=== PATIENT | male | born 1930 | race African-American/Black ===

== ENCOUNTER 2018-10-06 09:41 | Inpatient (IN) ==
[2018-10-06 10:18] LABS: Basophils % 0.2 % (0.0-0.8); Eosinophils % 0.1 % (0.00-10.9); Hematocrit 32.4 VOL% (42.0-52.0); Hemoglobin 9.9 GM/DL (14.0-18.0); Immature Granulocytes % 0.5 %; Immature Granulocytes Absolute 0.09 #; Lymphocytes # 0.5 10*3/uL (1.4-4.0); Mean Corpuscular HGB Conc 30.6 GM/DL (32-36); Mean Corpuscular Volume 91.5 FL (87-102); Mean Platelet Volume 10.9 FL (9.6-12.0); Monocytes % 4.9 % (1.7-12.7); Neutrophils % 91.3 % (38.7-73.9); Platelet Count 204 T/CUMM (130-400); Red Blood Count 3.54 MC/CUMM (3.8-5.5); Red Cell Distribution Width 13.6 % (9.3-17.3); White Blood Count 17.4 T/CUMM (4-12)
[2018-10-06] MEDS ORDERED: SODIUM CHLORIDE 0.9% 1,000 ML IV STA ×2 (10:22→10:55)
[2018-10-06 10:27] LABS: Albumin 3.3 G/DL (3.4-5.0); Bilirubin,Total 0.5 MG/DL (0.2-1.0); Osmolality,Calculated 293.5 MOS/KG (273-304); Total Protein 6.4 G/DL (6.4-8.3)
[2018-10-06 10:29] LABS: PT Patient Result 11.2 SECS; Partial Thromboplastin Time 24.2 SECS (0-40)
[2018-10-06 10:30] LABS: Calcium 8.8 MG/DL (8.5-10.1)
[2018-10-06] MEDS ORDERED: CALCIUM CHLORIDE 1,000 MG/10 ML SYRINGE IV STA (10:30)
[2018-10-06] MEDS ORDERED: DEXTROSE 50% 25 GM/50 ML VIAL IV STA (10:30)
[2018-10-06] MEDS ORDERED: ALBUTEROL NEB SOLN 5 MG/ML 20 ML/BOTTLE CONT NEB STA (10:30)
[2018-10-06 10:31] LABS: Apearance,Urine CLEAR (Clear); Bacteria,Urine Occasional /HPF (Few); Bilirubin,Urine Negative (Negative); Blood, Urine Small mg/dL (Negative); Glucose,Urine (UA) Negative (Negative); Ketones,Urine Negative (Negative); Mucus,Urine Occasional /LPF (Occasional); Nitrite,Urine Negative (Negative); Protein,Urine Negative; RBC,Urine <1 /HPF (0-4); Squamous Epithelial Cell,Urine Occasional /HPF (0-10); Urine Color Yellow (Yellow); Urine Specific Gravity 1.008 (1.001-1.035); Urine Urobilinogen < 2.0 EU/DL (0.2-1.0)
[2018-10-06] MEDS ORDERED: INSULIN REGULAR 100 UNIT/ML IV STA (10:31)
[2018-10-06] MEDS ORDERED: DEXTROSE 50% 25 GM/50 ML SYRINGE IV ONE (10:34)
[2018-10-06 10:43] LABS: CKMB % 2.1 %
[2018-10-06 10:45] LABS: Band Neutrophils 1 % (0-10); Lymphocytes 2 % (20-55); Segmented Neutrophils 92 % (50-85); Total Cells Counted 100
[2018-10-06 10:46] LABS: Microcytosis Slight; Platelet Estimate Normal
[2018-10-06] MEDS ORDERED: SODIUM CHLORIDE 0.9% 100 ML IV ONE (10:46)
[2018-10-06 10:48] LABS: Troponin I 2.09 NG/ML (0.00-0.045)
[2018-10-06 11:00] LABS: Barbiturates Screen,Urine Negative (Negative); Benzodiazepines Screen,Urine Negative (Negative); Cannabinoid Screen,Urine Negative (Negative); Opiate Screen,Urine Negative (Negative); Phencyclidine Screen,Urine Negative (Negative)
[2018-10-06] MEDS ORDERED: SODIUM BICARB INJ 50 MEQ in DEXTROSE 5% 1,000 ML IV SCH (11:00)
[2018-10-06] MEDS ORDERED: AMPICILLIN/SULBACTAM 3,000 MG in SODIUM CHLORIDE 0.9% 100 ML IV STA (11:48)
[2018-10-06] MEDS ORDERED: ALBUTEROL 2.5 MG/3 ML NEB RESP TX PRN (12:24)
[2018-10-06] MEDS ORDERED: PROMETHAZINE 25 MG/1 ML VIAL IM PRN (12:24)
[2018-10-06] MEDS ORDERED: ONDANSETRON 4 MG/2 ML VIAL IV PRN (12:24)
[2018-10-06] MEDS ORDERED: PIPERACILLIN/TAZOBACTAM 3,375 MG in SODIUM CHLORIDE 0.9% 100 ML IV SCH (12:30)
[2018-10-06] MEDS ORDERED: LEVOFLOXACIN INJ 500 MG in PREMIX 1 EACH IV ONE (12:30)
[2018-10-06] MEDS ORDERED: SODIUM POLYSTYRENE SULFATE 15 GM/60 ML BOTTLE PO STA ×2 (12:31→13:31)
[2018-10-06] MEDS: ALBUTEROL/IPRATROPIUM 3 ML NEB RESP TX SCH ×2 (13:00→19:34)
[2018-10-06 13:01] LABS: Thyroid Stimulating Hormone 0.068 uIU/ml (0.358-3.74)
[2018-10-06] MEDS ORDERED: methylPREDNISolone SOD SUC 125 MG/2 ML VIAL IV STA (13:14)
[2018-10-06 13:20] LABS: Allen Test Positive
[2018-10-06] MEDS ORDERED: ASPIRIN EC 325 MG TABLET PO SCH (13:20)
[2018-10-06] MEDS ORDERED: MORPHINE 4 MG/1 ML VIAL IV PRN (13:20)
[2018-10-06 13:21] LABS: ABG Base Excess -14.6 MMOL/L (-2.5-2.5); ABG HCO3 13.2 MMOL/L (20-26); ABG Oxygen Saturation 99.2 % (95-100); ABG PCO2 37.6 MM HG (35-48); ABG TCO2 12.7 MMOL/L (23-27)
[2018-10-06 13:23] LABS: ABG PH 7.159 (7.35-7.45)
[2018-10-06] MEDS ORDERED: SODIUM BICARBONATE 50 MEQ/50 ML SYRINGE IV ONE (13:26)
[2018-10-06] MEDS ORDERED: SODIUM BICARBONATE 50 MEQ/50 ML VIAL IV STA (13:29)
[2018-10-06] MEDS: ENOXAPARIN 80 MG/0.8 ML SYRINGE SUBCUT SCH (13:42)
[2018-10-06] MEDS: FAMOTIDINE 20 MG/2 ML VIAL IV SCH (13:44)
[2018-10-06 13:54] LABS: Free T4 (Free Thyroxine) 0.85 NG/DL (0.76-1.46)
[2018-10-06 14:14] LABS: Calcium 8.9 MG/DL (8.5-10.1); Osmolality,Calculated 303.8 MOS/KG (273-304)
[2018-10-06 14:30] LABS: CKMB % 2.3 %
[2018-10-06 14:44] LABS: Troponin I 3.49 NG/ML (0.00-0.045)
[2018-10-06] MEDS ORDERED: METOPROLOL TARTRATE 5 MG/5 ML VIAL IV ONE ×2 (15:07→15:15)
[2018-10-06] MEDS: SODIUM BICARB INJ 150 MEQ in STERILE WATER INJ 850 ML IV SCH ×2 (15:15→23:26)
[2018-10-06] MEDS: CLINDAMYCIN INJ 900 MG in PREMIX 1 EACH IV SCH ×2 (15:28→21:27)
[2018-10-06 16:12] LABS: Calcium 8.8 MG/DL (8.5-10.1)
[2018-10-06 19:30] LABS: CKMB % 2.5 %
[2018-10-06 19:34] LABS: Troponin I 8.04 NG/ML (0.00-0.045)
[2018-10-06] MEDS: DORNASE ALFA 2.5 MG/2.5 ML VIAL RESP TX SCH (19:34)
[2018-10-06] MEDS: ATORVASTATIN 40 MG TABLET PO SCH (20:30)
[2018-10-06] MEDS: CARVEDILOL 3.125 MG TABLET PO SCH (20:30)
[2018-10-06] MEDS: methylPREDNISolone SOD SUC 125 MG/2 ML VIAL IV SCH (21:28)
[2018-10-07] MEDS: ALBUTEROL/IPRATROPIUM 3 ML NEB RESP TX SCH ×4 (00:14→19:18)
[2018-10-07 03:46] LABS: Hematocrit 27.6 VOL% (42.0-52.0); Hemoglobin 8.9 GM/DL (14.0-18.0); Immature Granulocytes % 0.5 %; Immature Granulocytes Absolute 0.06 #; Lymphocytes # 0.4 10*3/uL (1.4-4.0); Lymphocytes % 3.6 % (21.2-54.2); Mean Corpuscular HGB Conc 32.2 GM/DL (32-36); Mean Corpuscular Volume 86.8 FL (87-102); Monocytes % 2.8 % (1.7-12.7); Neutrophils % 93.1 % (38.7-73.9); Platelet Count 196 T/CUMM (130-400); Red Blood Count 3.18 MC/CUMM (3.8-5.5); Red Cell Distribution Width 13.3 % (9.3-17.3); White Blood Count 11.2 T/CUMM (4-12)
[2018-10-07 04:06] LABS: Albumin 2.8 G/DL (3.4-5.0); Bilirubin,Total 0.4 MG/DL (0.2-1.0); Calcium 8.1 MG/DL (8.5-10.1); Risk Ratio 2.42; Total Protein 5.1 G/DL (6.4-8.3); VLDL CHOLESTEROL 26.6 MG/DL
[2018-10-07 04:10] LABS: CKMB % 2.5 %
[2018-10-07 04:12] LABS: Lymphocytes 6 % (20-55); Polychromasia Few; Segmented Neutrophils 93 % (50-85); Total Cells Counted 100
[2018-10-07 04:13] LABS: Platelet Estimate Adequate; Troponin I 19.9 NG/ML (0.00-0.045)
[2018-10-07] MEDS: CLINDAMYCIN INJ 900 MG in PREMIX 1 EACH IV SCH ×3 (05:49→20:32)
[2018-10-07] MEDS: DORNASE ALFA 2.5 MG/2.5 ML VIAL RESP TX SCH ×2 (07:54→19:26)
[2018-10-07] MEDS: ASPIRIN EC 81 MG TABLET PO SCH (08:20)
[2018-10-07] MEDS: methylPREDNISolone SOD SUC 125 MG/2 ML VIAL IV SCH ×3 (08:21→23:34)
[2018-10-07] MEDS: CARVEDILOL 3.125 MG TABLET PO SCH ×2 (08:21→20:32)
[2018-10-07] MEDS: CLOPIDOGREL 75 MG TABLET PO SCH (08:21)
[2018-10-07] MEDS ORDERED: LIOTHYRONINE 25 MCG TABLET PO SCH (09:00)
[2018-10-07] MEDS ORDERED: DILTIAZEM CD 240 MG CAPSULE PO SCH (09:00)
[2018-10-07] MEDS ORDERED: LEVOTHYROXINE 50 MCG TABLET PO SCH (09:00)
[2018-10-07] MEDS: SODIUM BICARB INJ 150 MEQ in STERILE WATER INJ 850 ML IV SCH (09:30)
[2018-10-07] MEDS: LACTATED RINGERS 1,000 ML IV SCH ×2 (11:13→22:30)
[2018-10-07] MEDS: FAMOTIDINE 20 MG/2 ML VIAL IV SCH (13:11)
[2018-10-07] MEDS: ENOXAPARIN 80 MG/0.8 ML SYRINGE SUBCUT SCH (13:16)
[2018-10-07] MEDS: ATORVASTATIN 40 MG TABLET PO SCH (20:32)
[2018-10-08] MEDS: ALBUTEROL/IPRATROPIUM 3 ML NEB RESP TX SCH ×4 (00:19→19:44)
[2018-10-08 03:38] LABS: ABG Base Excess 6.7 MMOL/L (-2.5-2.5); ABG HCO3 30.5 MMOL/L (20-26); ABG Oxygen Saturation 95.4 % (95-100); ABG PCO2 41.1 MM HG (35-48); ABG PH 7.482 (7.35-7.45); ABG PO2 76.3 MM HG (80-95); ABG TCO2 28.3 MMOL/L (23-27); Allen Test Positive
[2018-10-08 04:56] LABS: Basophils % 0.1 % (0.0-0.8); Hematocrit 26.1 VOL% (42.0-52.0); Hemoglobin 8.6 GM/DL (14.0-18.0); Immature Granulocytes % 1.1 %; Immature Granulocytes Absolute 0.12 #; Lymphocytes # 0.3 10*3/uL (1.4-4.0); Lymphocytes % 2.4 % (21.2-54.2); Mean Corpuscular Volume 85.9 FL (87-102); Monocytes % 2.6 % (1.7-12.7); NRBC # 0.09 10*3/uL; Neutrophils % 93.8 % (38.7-73.9); Platelet Count 138 T/CUMM (130-400); Red Blood Count 3.04 MC/CUMM (3.8-5.5); Red Cell Distribution Width 13.5 % (9.3-17.3); White Blood Count 11.2 T/CUMM (4-12)
[2018-10-08] MEDS: CLINDAMYCIN INJ 900 MG in PREMIX 1 EACH IV SCH ×3 (05:00→23:41)
[2018-10-08 05:19] LABS: Albumin 2.7 G/DL (3.4-5.0); Bilirubin,Total 0.5 MG/DL (0.2-1.0); Calcium 7.9 MG/DL (8.5-10.1); Osmolality,Calculated 296.4 MOS/KG (273-304); Total Protein 5.3 G/DL (6.4-8.3)
[2018-10-08 05:29] LABS: Band Neutrophils 3 % (0-10); Lymphocytes 2 % (20-55); Platelet Estimate Decreased; Segmented Neutrophils 92 % (50-85); Total Cells Counted 100
[2018-10-08 05:30] LABS: Hypochromasia 2+
[2018-10-08] MEDS: DORNASE ALFA 2.5 MG/2.5 ML VIAL RESP TX SCH ×2 (07:12→19:44)
[2018-10-08] MEDS: LACTATED RINGERS 1,000 ML IV SCH ×2 (08:18→20:08)
[2018-10-08] MEDS ORDERED: LORazepam 2 MG/1 ML VIAL IV PRN (08:26)
[2018-10-08] MEDS: methylPREDNISolone SOD SUC 125 MG/2 ML VIAL IV SCH ×3 (08:42→23:41)
[2018-10-08] MEDS: ASPIRIN EC 81 MG TABLET PO SCH (09:40)
[2018-10-08] MEDS: CLOPIDOGREL 75 MG TABLET PO SCH (09:40)
[2018-10-08] MEDS: CARVEDILOL 6.25 MG TABLET PO SCH ×2 (09:40→21:29)
[2018-10-08] MEDS: FAMOTIDINE 20 MG/2 ML VIAL IV SCH (12:17)
[2018-10-08] MEDS: ENOXAPARIN 30 MG/0.3 ML SYRINGE SUBCUT SCH (12:18)
[2018-10-08] MEDS: LEVOFLOXACIN INJ 250 MG in PREMIX 1 EACH IV SCH (13:37)
[2018-10-08] MEDS: ATORVASTATIN 40 MG TABLET PO SCH (21:29)
[2018-10-09] MEDS: ALBUTEROL/IPRATROPIUM 3 ML NEB RESP TX SCH ×4 (00:30→20:26)
[2018-10-09] MEDS: CLINDAMYCIN INJ 900 MG in PREMIX 1 EACH IV SCH ×3 (04:35→20:46)
[2018-10-09] MEDS: LACTATED RINGERS 1,000 ML IV SCH (07:00)
[2018-10-09] MEDS: CLOPIDOGREL 75 MG TABLET PO SCH (08:24)
[2018-10-09] MEDS: methylPREDNISolone SOD SUC 125 MG/2 ML VIAL IV SCH ×3 (08:24→23:31)
[2018-10-09] MEDS: ASPIRIN EC 81 MG TABLET PO SCH (08:24)
[2018-10-09] MEDS: CARVEDILOL 6.25 MG TABLET PO SCH ×2 (08:24→18:01)
[2018-10-09] MEDS: DORNASE ALFA 2.5 MG/2.5 ML VIAL RESP TX SCH ×2 (08:32→20:26)
[2018-10-09] MEDS ORDERED: FUROSEMIDE 40 MG/4 ML VIAL IV ONE (09:10)
[2018-10-09] MEDS ORDERED: methylPREDNISolone SOD SUC 125 MG/2 ML VIAL IV ONE (09:30)
[2018-10-09 09:45] LABS: ABG Base Excess 2.5 MMOL/L (-2.5-2.5); ABG HCO3 26.6 MMOL/L (20-26); ABG Oxygen Saturation 97.6 % (95-100); ABG PCO2 50.8 MM HG (35-48); ABG PH 7.359 (7.35-7.45); ABG TCO2 26.4 MMOL/L (23-27)
[2018-10-09 09:46] LABS: Basophils % 0.2 % (0.0-0.8); Hematocrit 27.3 VOL% (42.0-52.0); Hemoglobin 8.6 GM/DL (14.0-18.0); Immature Granulocytes % 1.4 %; Immature Granulocytes Absolute 0.15 #; Lymphocytes # 0.8 10*3/uL (1.4-4.0); Lymphocytes % 7.2 % (21.2-54.2); Mean Corpuscular HGB Conc 31.5 GM/DL (32-36); Mean Corpuscular Volume 89.5 FL (87-102); Mean Platelet Volume 11.1 FL (9.6-12.0); Monocytes % 3.1 % (1.7-12.7); NRBC # 0.11 10*3/uL; Neutrophils % 88.1 % (38.7-73.9); Platelet Count 145 T/CUMM (130-400); Red Blood Count 3.05 MC/CUMM (3.8-5.5); Red Cell Distribution Width 13.7 % (9.3-17.3)
[2018-10-09 09:59] LABS: Alanine Aminotransferase 54 U/L (16-61); Albumin 2.5 G/DL (3.4-5.0); Alkaline Phosphatase 60 U/L (45-117); Aspartate Amino Transferase 59 U/L (0-37); Blood Urea Nitrogen 62 MG/DL (7-18); CKMB % 0.6 %; Calcium 8.3 MG/DL (8.5-10.1); Glucose 171 MG/DL (74-106); Osmolality,Calculated 298.5 MOS/KG (273-304); Total Protein 5.3 G/DL (6.4-8.3)
[2018-10-09] MEDS: FAMOTIDINE 20 MG/2 ML VIAL IV SCH (12:01)
[2018-10-09] MEDS: ENOXAPARIN 30 MG/0.3 ML SYRINGE SUBCUT SCH (12:04)
[2018-10-09] MEDS: ATORVASTATIN 40 MG TABLET PO SCH (20:46)
[2018-10-10] MEDS: ALBUTEROL/IPRATROPIUM 3 ML NEB RESP TX SCH ×4 (00:38→19:11)
[2018-10-10 04:37] LABS: Basophils % 0.1 % (0.0-0.8); Hematocrit 25.8 VOL% (42.0-52.0); Hemoglobin 8.5 GM/DL (14.0-18.0); Immature Granulocytes % 1.1 %; Immature Granulocytes Absolute 0.13 #; Lymphocytes # 0.5 10*3/uL (1.4-4.0); Lymphocytes % 4.4 % (21.2-54.2); Mean Corpuscular HGB Conc 32.9 GM/DL (32-36); Mean Corpuscular Volume 86.9 FL (87-102); Mean Platelet Volume 11.4 FL (9.6-12.0); Monocytes % 3.7 % (1.7-12.7); NRBC # 0.08 10*3/uL; Neutrophils % 90.7 % (38.7-73.9); Platelet Count 125 T/CUMM (130-400); Red Blood Count 2.97 MC/CUMM (3.8-5.5); Red Cell Distribution Width 13.6 % (9.3-17.3); White Blood Count 11.4 T/CUMM (4-12)
[2018-10-10] MEDS: CLINDAMYCIN INJ 900 MG in PREMIX 1 EACH IV SCH ×3 (04:59→21:32)
[2018-10-10 05:00] LABS: Calcium 8.6 MG/DL (8.5-10.1); Osmolality,Calculated 302.4 MOS/KG (273-304)
[2018-10-10 05:31] LABS: Band Neutrophils 2 % (0-10); Hypochromasia 2+; Lymphocytes 4 % (20-55); Platelet Estimate Decreased; Segmented Neutrophils 92 % (50-85); Total Cells Counted 100
[2018-10-10] MEDS: methylPREDNISolone SOD SUC 125 MG/2 ML VIAL IV SCH (08:39)
[2018-10-10] MEDS: DORNASE ALFA 2.5 MG/2.5 ML VIAL RESP TX SCH (08:39)
[2018-10-10] MEDS: CLOPIDOGREL 75 MG TABLET PO SCH (08:45)
[2018-10-10] MEDS: ASPIRIN EC 81 MG TABLET PO SCH (08:45)
[2018-10-10] MEDS: CARVEDILOL 6.25 MG TABLET PO SCH ×2 (08:45→18:21)
[2018-10-10] MEDS ORDERED: methylPREDNISolone SOD SUC 40 MG/1 ML VIAL ONE (08:57)
[2018-10-10] MEDS ORDERED: FUROSEMIDE 40 MG/4 ML VIAL IV SCH (09:00)
[2018-10-10] MEDS ORDERED: methylPREDNISolone SOD SUC 125 MG/2 ML VIAL IV SCH (09:00)
[2018-10-10] MEDS: methylPREDNISolone SOD SUC 40 MG/1 ML VIAL IV SCH ×2 (09:02→18:39)
[2018-10-10] MEDS: ARFORMOTEROL 15 MCG/2 ML NEB RESP TX SCH ×2 (09:13→19:06)
[2018-10-10] MEDS: ENOXAPARIN 30 MG/0.3 ML SYRINGE SUBCUT SCH (12:55)
[2018-10-10] MEDS: FAMOTIDINE 20 MG/2 ML VIAL IV SCH (12:56)
[2018-10-10] MEDS: LEVOFLOXACIN INJ 250 MG in PREMIX 1 EACH IV SCH (12:59)
[2018-10-10] MEDS: ACETYLCYSTEINE 20% 800 MG/4 ML VIAL RESP TX SCH ×2 (13:00→19:16)
[2018-10-10] MEDS: ATORVASTATIN 40 MG TABLET PO SCH (21:32)
[2018-10-11] MEDS: ALBUTEROL/IPRATROPIUM 3 ML NEB RESP TX SCH ×4 (01:30→20:03)
[2018-10-11] MEDS: ACETYLCYSTEINE 20% 800 MG/4 ML VIAL RESP TX SCH ×4 (01:30→20:03)
[2018-10-11] MEDS: methylPREDNISolone SOD SUC 40 MG/1 ML VIAL IV SCH ×3 (01:36→18:10)
[2018-10-11] MEDS: CLINDAMYCIN INJ 900 MG in PREMIX 1 EACH IV SCH ×3 (06:13→20:39)
[2018-10-11] MEDS: ARFORMOTEROL 15 MCG/2 ML NEB RESP TX SCH ×2 (06:40→20:03)
[2018-10-11] MEDS ORDERED: FUROSEMIDE 40 MG/4 ML VIAL IV SCH (09:00)
[2018-10-11] MEDS: CLOPIDOGREL 75 MG TABLET PO SCH (09:15)
[2018-10-11] MEDS: CARVEDILOL 6.25 MG TABLET PO SCH ×2 (09:15→18:11)
[2018-10-11] MEDS: ASPIRIN EC 81 MG TABLET PO SCH (09:15)
[2018-10-11 09:43] LABS: Calcium 8.8 MG/DL (8.5-10.1); Osmolality,Calculated 300.7 MOS/KG (273-304)
[2018-10-11] MEDS: FAMOTIDINE 20 MG/2 ML VIAL IV SCH (12:39)
[2018-10-11] MEDS: hydrALAZINE 10 MG TABLET PO SCH ×2 (15:05→20:39)
[2018-10-11] MEDS: ISOSORBIDE DINITRATE 10 MG TABLET PO SCH ×2 (15:05→20:39)
[2018-10-11] MEDS: ENOXAPARIN 30 MG/0.3 ML SYRINGE SUBCUT SCH (15:05)
[2018-10-11] MEDS: ATORVASTATIN 40 MG TABLET PO SCH (20:39)
[2018-10-12] MEDS: methylPREDNISolone SOD SUC 40 MG/1 ML VIAL IV SCH ×2 (01:04→13:10)
[2018-10-12] MEDS: ACETYLCYSTEINE 20% 800 MG/4 ML VIAL RESP TX SCH ×3 (01:34→15:02)
[2018-10-12] MEDS: ALBUTEROL/IPRATROPIUM 3 ML NEB RESP TX SCH ×4 (01:34→19:23)
[2018-10-12] MEDS: CLINDAMYCIN INJ 900 MG in PREMIX 1 EACH IV SCH ×2 (05:00→13:09)
[2018-10-12] MEDS: LEVOTHYROXINE 25 MCG TABLET PO SCH (05:41)
[2018-10-12 05:50] LABS: Basophils % 0.1 % (0.0-0.8); Hematocrit 26.7 VOL% (42.0-52.0); Hemoglobin 8.6 GM/DL (14.0-18.0); Immature Granulocytes % 1.9 %; Immature Granulocytes Absolute 0.28 #; Lymphocytes # 0.5 10*3/uL (1.4-4.0); Lymphocytes % 3.1 % (21.2-54.2); Mean Corpuscular HGB Conc 32.2 GM/DL (32-36); Mean Corpuscular Volume 88.7 FL (87-102); Mean Platelet Volume 12.4 FL (9.6-12.0); Monocytes % 2.8 % (1.7-12.7); NRBC # 0.02 10*3/uL; Neutrophils % 92.1 % (38.7-73.9); Platelet Count 134 T/CUMM (130-400); Red Blood Count 3.01 MC/CUMM (3.8-5.5); Red Cell Distribution Width 13.8 % (9.3-17.3); White Blood Count 14.6 T/CUMM (4-12)
[2018-10-12 06:05] LABS: Calcium 8.6 MG/DL (8.5-10.1); Osmolality,Calculated 301.7 MOS/KG (273-304)
[2018-10-12 06:56] LABS: Lymphocytes 3 % (20-55); Myelocytes 1 %; Segmented Neutrophils 94 % (50-85); Total Cells Counted 100
[2018-10-12 07:01] LABS: Acanthocytes 2+; Anisocytosis Slight; Hypochromasia Slight; Microcytosis 2+; Polychromasia Few
[2018-10-12 07:02] LABS: Platelet Estimate Normal; Target Cells Few
[2018-10-12] MEDS: ARFORMOTEROL 15 MCG/2 ML NEB RESP TX SCH ×2 (07:25→19:23)
[2018-10-12] MEDS ORDERED: SODIUM POLYSTYRENE SULFATE 15 GM/60 ML BOTTLE PO STA (08:13)
[2018-10-12] MEDS ORDERED: HALOPERIDOL 5 MG/ML AMP IV ONE (08:36)
[2018-10-12] MEDS: CARVEDILOL 6.25 MG TABLET PO SCH ×2 (10:17→16:33)
[2018-10-12] MEDS: ASPIRIN EC 81 MG TABLET PO SCH (10:17)
[2018-10-12] MEDS: PANTOPRAZOLE 40 MG TABLET PO SCH (10:17)
[2018-10-12] MEDS: CLOPIDOGREL 75 MG TABLET PO SCH (10:17)
[2018-10-12] MEDS: hydrALAZINE 10 MG TABLET PO SCH (10:27)
[2018-10-12] MEDS: ISOSORBIDE DINITRATE 10 MG TABLET PO SCH (10:28)
[2018-10-12] MEDS: ENOXAPARIN 30 MG/0.3 ML SYRINGE SUBCUT SCH (13:09)
[2018-10-12] MEDS: hydrALAZINE 25 MG TABLET PO SCH ×2 (14:52→20:40)
[2018-10-12] MEDS: ISOSORBIDE DINITRATE 20 MG TABLET PO SCH ×2 (14:52→20:40)
[2018-10-12] MEDS: AMOXICILLIN/CLAV 500 MG TABLET PO SCH (16:33)
[2018-10-12] MEDS: ATORVASTATIN 40 MG TABLET PO SCH (20:40)
[2018-10-12] MEDS: MIRTAZAPINE 15 MG TABLET PO SCH (20:40)
[2018-10-13] MEDS: ACETYLCYSTEINE 20% 800 MG/4 ML VIAL RESP TX SCH ×3 (00:34→14:29)
[2018-10-13] MEDS: ALBUTEROL/IPRATROPIUM 3 ML NEB RESP TX SCH ×4 (00:34→20:40)
[2018-10-13] MEDS: methylPREDNISolone SOD SUC 40 MG/1 ML VIAL IV SCH ×2 (01:33→12:57)
[2018-10-13] MEDS: AMOXICILLIN/CLAV 500 MG TABLET PO SCH ×2 (03:23→15:09)
[2018-10-13] MEDS: ARFORMOTEROL 15 MCG/2 ML NEB RESP TX SCH ×2 (07:44→20:40)
[2018-10-13] MEDS: hydrALAZINE 25 MG TABLET PO SCH ×3 (10:24→21:03)
[2018-10-13] MEDS: ASPIRIN EC 81 MG TABLET PO SCH (10:24)
[2018-10-13] MEDS: ISOSORBIDE DINITRATE 20 MG TABLET PO SCH ×3 (10:24→21:03)
[2018-10-13] MEDS: CARVEDILOL 6.25 MG TABLET PO SCH ×2 (10:24→16:03)
[2018-10-13] MEDS: PANTOPRAZOLE 40 MG TABLET PO SCH (10:25)
[2018-10-13] MEDS: CLOPIDOGREL 75 MG TABLET PO SCH (10:25)
[2018-10-13] MEDS: ENOXAPARIN 30 MG/0.3 ML SYRINGE SUBCUT SCH (12:57)
[2018-10-13] MEDS: MIRTAZAPINE 15 MG TABLET PO SCH (21:03)
[2018-10-13] MEDS: ATORVASTATIN 40 MG TABLET PO SCH (21:03)
[2018-10-13] MEDS: DONEPEZIL 5 MG TABLET PO SCH (21:03)
[2018-10-14] MEDS: ALBUTEROL/IPRATROPIUM 3 ML NEB RESP TX SCH ×4 (00:47→19:25)
[2018-10-14] MEDS: ACETYLCYSTEINE 20% 800 MG/4 ML VIAL RESP TX SCH ×2 (00:47→07:22)
[2018-10-14] MEDS: methylPREDNISolone SOD SUC 40 MG/1 ML VIAL IV SCH (01:51)
[2018-10-14] MEDS: AMOXICILLIN/CLAV 500 MG TABLET PO SCH ×2 (03:12→15:32)
[2018-10-14] MEDS: ARFORMOTEROL 15 MCG/2 ML NEB RESP TX SCH ×2 (07:22→19:25)
[2018-10-14] MEDS: CARVEDILOL 6.25 MG TABLET PO SCH ×2 (10:12→18:16)
[2018-10-14] MEDS: ISOSORBIDE DINITRATE 20 MG TABLET PO SCH ×3 (10:13→20:29)
[2018-10-14] MEDS: CLOPIDOGREL 75 MG TABLET PO SCH (10:13)
[2018-10-14] MEDS: PANTOPRAZOLE 40 MG TABLET PO SCH (10:13)
[2018-10-14] MEDS: hydrALAZINE 25 MG TABLET PO SCH ×3 (10:13→20:29)
[2018-10-14] MEDS: ASPIRIN EC 81 MG TABLET PO SCH (10:13)
[2018-10-14 11:17] LABS: Basophils % 0.2 % (0.0-0.8); Hematocrit 28.8 VOL% (42.0-52.0); Immature Granulocytes % 2.1 %; Immature Granulocytes Absolute 0.43 #; Lymphocytes # 0.5 10*3/uL (1.4-4.0); Lymphocytes % 2.3 % (21.2-54.2); Mean Corpuscular HGB Conc 31.3 GM/DL (32-36); Mean Corpuscular Volume 92.6 FL (87-102); Mean Platelet Volume 11.9 FL (9.6-12.0); Monocytes % 2.1 % (1.7-12.7); Neutrophils % 93.3 % (38.7-73.9); Platelet Count 186 T/CUMM (130-400); Red Blood Count 3.11 MC/CUMM (3.8-5.5); Red Cell Distribution Width 15.2 % (9.3-17.3); White Blood Count 20.3 T/CUMM (4-12)
[2018-10-14 11:34] LABS: Calcium 8.3 MG/DL (8.5-10.1)
[2018-10-14 11:46] LABS: Anisocytosis 1+; Lymphocytes 5 % (20-55); Platelet Estimate Normal; Segmented Neutrophils 94 % (50-85); Smudge Cells Few; Total Cells Counted 100
[2018-10-14 11:47] LABS: Macrocytosis 1+
[2018-10-14] MEDS: ENOXAPARIN 30 MG/0.3 ML SYRINGE SUBCUT SCH (15:33)
[2018-10-14] MEDS ORDERED: SODIUM POLYSTYRENE SULFATE 15 GM/60 ML BOTTLE PO STA (16:29)
[2018-10-14] MEDS: DONEPEZIL 5 MG TABLET PO SCH (20:29)
[2018-10-14] MEDS: MIRTAZAPINE 15 MG TABLET PO SCH (20:29)
[2018-10-14] MEDS: ATORVASTATIN 40 MG TABLET PO SCH (20:29)
[2018-10-15] MEDS: ALBUTEROL/IPRATROPIUM 3 ML NEB RESP TX SCH ×4 (01:40→19:31)
[2018-10-15] MEDS: AMOXICILLIN/CLAV 500 MG TABLET PO SCH ×2 (02:25→20:26)
[2018-10-15] MEDS: LEVOTHYROXINE 25 MCG TABLET PO SCH (06:34)
[2018-10-15] MEDS: ARFORMOTEROL 15 MCG/2 ML NEB RESP TX SCH ×2 (07:41→19:31)
[2018-10-15] MEDS: CARVEDILOL 6.25 MG TABLET PO SCH ×2 (08:39→16:14)
[2018-10-15] MEDS: CLOPIDOGREL 75 MG TABLET PO SCH (08:39)
[2018-10-15] MEDS: predniSONE 20 MG TABLET PO SCH (08:39)
[2018-10-15] MEDS: hydrALAZINE 25 MG TABLET PO SCH ×3 (08:39→20:27)
[2018-10-15] MEDS: ASPIRIN EC 81 MG TABLET PO SCH (08:39)
[2018-10-15] MEDS: PANTOPRAZOLE 40 MG TABLET PO SCH (08:40)
[2018-10-15] MEDS: ISOSORBIDE DINITRATE 20 MG TABLET PO SCH ×3 (08:40→20:27)
[2018-10-15] MEDS ORDERED: predniSONE 20 MG TABLET PO SCH (09:00)
[2018-10-15] MEDS ORDERED: methylPREDNISolone SOD SUC 40 MG/1 ML VIAL IV SCH (09:00)
[2018-10-15 09:25] LABS: Calcium 8.1 MG/DL (8.5-10.1); Osmolality,Calculated 304.3 MOS/KG (273-304)
[2018-10-15] MEDS: LEVOFLOXACIN INJ 500 MG in PREMIX 1 EACH IV SCH (11:50)
[2018-10-15] MEDS: ENOXAPARIN 30 MG/0.3 ML SYRINGE SUBCUT SCH (13:09)
[2018-10-15] MEDS: MIRTAZAPINE 15 MG TABLET PO SCH (20:26)
[2018-10-15] MEDS: ATORVASTATIN 40 MG TABLET PO SCH (20:27)
[2018-10-16] MEDS: ALBUTEROL/IPRATROPIUM 3 ML NEB RESP TX SCH ×4 (00:26→19:44)
[2018-10-16] MEDS: LEVOTHYROXINE 25 MCG TABLET PO SCH (05:29)
[2018-10-16] MEDS: ARFORMOTEROL 15 MCG/2 ML NEB RESP TX SCH ×2 (07:12→19:44)
[2018-10-16] MEDS ORDERED: predniSONE 20 MG TABLET PO SCH (09:15)
[2018-10-16] MEDS: ASPIRIN EC 81 MG TABLET PO SCH (09:23)
[2018-10-16] MEDS: CLOPIDOGREL 75 MG TABLET PO SCH (09:23)
[2018-10-16] MEDS: AMOXICILLIN/CLAV 500 MG TABLET PO SCH (09:23)
[2018-10-16] MEDS: CARVEDILOL 6.25 MG TABLET PO SCH ×2 (09:24→16:24)
[2018-10-16] MEDS: hydrALAZINE 25 MG TABLET PO SCH ×3 (09:24→21:34)
[2018-10-16] MEDS: ISOSORBIDE DINITRATE 20 MG TABLET PO SCH ×3 (09:24→21:34)
[2018-10-16] MEDS: PANTOPRAZOLE 40 MG TABLET PO SCH (09:24)
[2018-10-16 09:44] LABS: Basophils % 0.1 % (0.0-0.8); Eosinophils % 0.2 % (0.00-10.9); Hematocrit 28.4 VOL% (42.0-52.0); Hemoglobin 8.8 GM/DL (14.0-18.0); Immature Granulocytes % 1.4 %; Lymphocytes % 4.5 % (21.2-54.2); Mean Corpuscular Volume 92.5 FL (87-102); Mean Platelet Volume 12.1 FL (9.6-12.0); Monocytes % 4.4 % (1.7-12.7); Neutrophils % 89.4 % (38.7-73.9); Platelet Count 186 T/CUMM (130-400); Red Blood Count 3.07 MC/CUMM (3.8-5.5); Red Cell Distribution Width 15.9 % (9.3-17.3); White Blood Count 21.1 T/CUMM (4-12)
[2018-10-16 10:17] LABS: Hypochromasia 1+; Lymphocytes 8 % (20-55); Macrocytosis Slight; Platelet Estimate Adequate; Segmented Neutrophils 89 % (50-85); Total Cells Counted 100
[2018-10-16] MEDS: predniSONE 20 MG TABLET PO SCH (10:21)
[2018-10-16] MEDS: ENOXAPARIN 30 MG/0.3 ML SYRINGE SUBCUT SCH (15:41)
[2018-10-16] MEDS: CEFEPIME 1,000 MG in SODIUM CHLORIDE 0.9% 100 ML IV SCH (16:24)
[2018-10-16 17:21] LABS: Apearance,Urine CLEAR (Clear); Bilirubin,Urine Negative (Negative); Blood, Urine Negative (Negative); Glucose,Urine (UA) Negative (Negative); Ketones,Urine Negative (Negative); Nitrite,Urine Negative (Negative); Protein,Urine Negative; RBC,Urine 1 /HPF (0-4); Squamous Epithelial Cell,Urine Occasional /HPF (0-10); Urine Color Yellow (Yellow); Urine Specific Gravity 1.011 (1.001-1.035); Urine Urobilinogen < 2.0 EU/DL (0.2-1.0); WBC,Urine 4 /HPF (0-6)
[2018-10-16] MEDS: MIRTAZAPINE 15 MG TABLET PO SCH (21:34)
[2018-10-16] MEDS: ATORVASTATIN 40 MG TABLET PO SCH (21:34)
[2018-10-17] MEDS: ALBUTEROL/IPRATROPIUM 3 ML NEB RESP TX SCH ×4 (01:43→18:59)
[2018-10-17] MEDS: CEFEPIME 1,000 MG in SODIUM CHLORIDE 0.9% 100 ML IV SCH ×2 (04:31→16:35)
[2018-10-17] MEDS: ARFORMOTEROL 15 MCG/2 ML NEB RESP TX SCH ×2 (07:42→18:59)
[2018-10-17] MEDS: LEVOFLOXACIN INJ 500 MG in PREMIX 1 EACH IV SCH (08:59)
[2018-10-17] MEDS: ISOSORBIDE DINITRATE 20 MG TABLET PO SCH ×3 (09:00→20:22)
[2018-10-17] MEDS: ASPIRIN EC 81 MG TABLET PO SCH (09:00)
[2018-10-17] MEDS: CLOPIDOGREL 75 MG TABLET PO SCH (09:00)
[2018-10-17] MEDS: CARVEDILOL 6.25 MG TABLET PO SCH ×2 (09:00→16:36)
[2018-10-17] MEDS: hydrALAZINE 25 MG TABLET PO SCH ×3 (09:00→20:22)
[2018-10-17] MEDS: LEVOTHYROXINE 25 MCG TABLET PO SCH (09:00)
[2018-10-17] MEDS: PANTOPRAZOLE 40 MG TABLET PO SCH (09:00)
[2018-10-17] MEDS ORDERED: TUBERCULIN SKIN TEST 0.1 ML SYRINGE INTRADERM ONE (14:56)
[2018-10-17] MEDS: ENOXAPARIN 30 MG/0.3 ML SYRINGE SUBCUT SCH (16:36)
[2018-10-17] MEDS: ATORVASTATIN 40 MG TABLET PO SCH (20:22)
[2018-10-17] MEDS: MIRTAZAPINE 15 MG TABLET PO SCH (20:23)
[2018-10-18] MEDS: ALBUTEROL/IPRATROPIUM 3 ML NEB RESP TX SCH ×4 (00:03→19:36)
[2018-10-18] MEDS: CEFEPIME 1,000 MG in SODIUM CHLORIDE 0.9% 100 ML IV SCH ×2 (02:11→16:44)
[2018-10-18 04:53] LABS: Basophils % 0.1 % (0.0-0.8); Eosinophils # 0.1 10*3/uL (0.0-0.87); Eosinophils % 0.7 % (0.00-10.9); Hematocrit 21.4 VOL% (42.0-52.0); Hemoglobin 6.8 GM/DL (14.0-18.0); Immature Granulocytes % 0.7 %; Immature Granulocytes Absolute 0.11 #; Lymphocytes # 0.8 10*3/uL (1.4-4.0); Lymphocytes % 5.2 % (21.2-54.2); Mean Corpuscular HGB Conc 31.8 GM/DL (32-36); Mean Corpuscular Volume 92.2 FL (87-102); Mean Platelet Volume 12.2 FL (9.6-12.0); Monocytes % 4.6 % (1.7-12.7); Neutrophils % 88.7 % (38.7-73.9); Platelet Count 157 T/CUMM (130-400); Red Blood Count 2.32 MC/CUMM (3.8-5.5); Red Cell Distribution Width 16.2 % (9.3-17.3); White Blood Count 14.7 T/CUMM (4-12)
[2018-10-18 05:20] LABS: Calcium 8.4 MG/DL (8.5-10.1); Osmolality,Calculated 293.5 MOS/KG (273-304)
[2018-10-18] MEDS: LEVOTHYROXINE 25 MCG TABLET PO SCH (07:00)
[2018-10-18] MEDS: ARFORMOTEROL 15 MCG/2 ML NEB RESP TX SCH ×2 (07:33→19:36)
[2018-10-18] MEDS ORDERED: SODIUM CHLORIDE 0.9% 1,000 ML IV PRN (08:15)
[2018-10-18] MEDS ORDERED: FUROSEMIDE 20 MG/2 ML VIAL IV PRN (08:15)
[2018-10-18] MEDS: ASPIRIN EC 81 MG TABLET PO SCH (08:58)
[2018-10-18] MEDS: ISOSORBIDE DINITRATE 20 MG TABLET PO SCH (08:58)
[2018-10-18] MEDS: CARVEDILOL 6.25 MG TABLET PO SCH (08:58)
[2018-10-18] MEDS: hydrALAZINE 25 MG TABLET PO SCH (08:58)
[2018-10-18] MEDS: PANTOPRAZOLE 40 MG TABLET PO SCH (08:59)
[2018-10-18 09:01] LABS: % Iron Saturation 23.9 % (18-50)
[2018-10-18] MEDS ORDERED: LACTULOSE 20 GM/30 ML UDCUP PO ONE (09:39)
[2018-10-18] MEDS ORDERED: CARVEDILOL 12.5 MG TABLET PO SCH (17:00)
[2018-10-18] MEDS: MIRTAZAPINE 15 MG TABLET PO SCH (20:50)
[2018-10-18] MEDS: ATORVASTATIN 40 MG TABLET PO SCH (20:50)
[2018-10-19 02:08] LABS: Basophils % 0.1 % (0.0-0.8); Eosinophils # 0.1 10*3/uL (0.0-0.87); Eosinophils % 0.8 % (0.00-10.9); Hematocrit 30.4 VOL% (42.0-52.0); Immature Granulocytes % 0.8 %; Immature Granulocytes Absolute 0.12 #; Lymphocytes # 0.7 10*3/uL (1.4-4.0); Lymphocytes % 4.3 % (21.2-54.2); Mean Corpuscular HGB Conc 31.9 GM/DL (32-36); Mean Corpuscular Volume 91.3 FL (87-102); Mean Platelet Volume 11.7 FL (9.6-12.0); Monocytes % 4.1 % (1.7-12.7); Neutrophils % 89.9 % (38.7-73.9); Platelet Count 146 T/CUMM (130-400); Red Cell Distribution Width 16.3 % (9.3-17.3); White Blood Count 15.5 T/CUMM (4-12)
[2018-10-19 02:10] LABS: Hemoglobin 9.7 GM/DL (14.0-18.0); Red Blood Count 3.33 MC/CUMM (3.8-5.5)
[2018-10-19] MEDS: ALBUTEROL/IPRATROPIUM 3 ML NEB RESP TX SCH ×4 (02:19→19:34)
[2018-10-19] MEDS: CEFEPIME 1,000 MG in SODIUM CHLORIDE 0.9% 100 ML IV SCH ×2 (02:50→16:35)
[2018-10-19 05:01] LABS: Band Neutrophils 2 % (0-10); Lymphocytes 6 % (20-55); Platelet Estimate Adequate; Segmented Neutrophils 87 % (50-85); Total Cells Counted 100
[2018-10-19 05:02] LABS: Anisocytosis 1+; Macrocytosis 1+
[2018-10-19] MEDS: LEVOTHYROXINE 25 MCG TABLET PO SCH (06:01)
[2018-10-19] MEDS: ARFORMOTEROL 15 MCG/2 ML NEB RESP TX SCH ×2 (07:26→19:34)
[2018-10-19] MEDS: POLYETHYLENE GLYCOL POWDER 17 GM PACK PO SCH (08:10)
[2018-10-19] MEDS: ASPIRIN EC 81 MG TABLET PO SCH (08:10)
[2018-10-19] MEDS: PANTOPRAZOLE 40 MG TABLET PO SCH (08:10)
[2018-10-19] MEDS: LEVOFLOXACIN INJ 500 MG in PREMIX 1 EACH IV SCH (09:04)
[2018-10-19] MEDS: LACTULOSE 20 GM/30 ML UDCUP PO PRN (11:04)
[2018-10-19] MEDS ORDERED: ISOSORBIDE DINITRATE 10 MG TABLET PO SCH (16:28)
[2018-10-19] MEDS ORDERED: hydrALAZINE 10 MG TABLET PO SCH (16:28)
[2018-10-19] MEDS ORDERED: CARVEDILOL 6.25 MG TABLET PO SCH (16:28)
[2018-10-19] MEDS: MIRTAZAPINE 15 MG TABLET PO SCH (21:29)
[2018-10-19] MEDS: ATORVASTATIN 40 MG TABLET PO SCH (21:29)
[2018-10-20] MEDS: ALBUTEROL/IPRATROPIUM 3 ML NEB RESP TX SCH ×4 (00:12→19:00)
[2018-10-20] MEDS: CEFEPIME 1,000 MG in SODIUM CHLORIDE 0.9% 100 ML IV SCH ×2 (03:23→16:09)
[2018-10-20] MEDS: LEVOTHYROXINE 25 MCG TABLET PO SCH (06:55)
[2018-10-20] MEDS: ARFORMOTEROL 15 MCG/2 ML NEB RESP TX SCH ×2 (07:16→19:00)
[2018-10-20] MEDS: PANTOPRAZOLE 40 MG TABLET PO SCH (08:54)
[2018-10-20] MEDS: POLYETHYLENE GLYCOL POWDER 17 GM PACK PO SCH (08:54)
[2018-10-20] MEDS: ASPIRIN EC 81 MG TABLET PO SCH (08:54)
[2018-10-20] MEDS: ATORVASTATIN 40 MG TABLET PO SCH (22:23)
[2018-10-20] MEDS: MIRTAZAPINE 15 MG TABLET PO SCH (22:23)
[2018-10-21] MEDS: ALBUTEROL/IPRATROPIUM 3 ML NEB RESP TX SCH ×4 (00:05→19:33)
[2018-10-21] MEDS: CEFEPIME 1,000 MG in SODIUM CHLORIDE 0.9% 100 ML IV SCH ×2 (03:07→15:29)
[2018-10-21] MEDS: LEVOTHYROXINE 25 MCG TABLET PO SCH (06:15)
[2018-10-21] MEDS: ARFORMOTEROL 15 MCG/2 ML NEB RESP TX SCH ×2 (07:17→19:33)
[2018-10-21] MEDS: LEVOFLOXACIN INJ 500 MG in PREMIX 1 EACH IV SCH (09:05)
[2018-10-21] MEDS: PANTOPRAZOLE 40 MG TABLET PO SCH (09:05)
[2018-10-21] MEDS: ASPIRIN EC 81 MG TABLET PO SCH (09:05)
[2018-10-21] MEDS: POLYETHYLENE GLYCOL POWDER 17 GM PACK PO SCH (09:05)
[2018-10-21] MEDS ORDERED: diphenhydrAMINE CAP 50 MG CAPSULE PO ONE (12:59)
[2018-10-21] MEDS ORDERED: predniSONE 20 MG TABLET PO ONE (13:01)
[2018-10-21] MEDS ORDERED: FAMOTIDINE 20 MG TABLET PO ONE (13:30)
[2018-10-21] MEDS: CLOPIDOGREL 75 MG TABLET PO SCH (13:46)
[2018-10-21] MEDS: DONEPEZIL 5 MG TABLET PO SCH (21:45)
[2018-10-21] MEDS: MIRTAZAPINE 15 MG TABLET PO SCH (21:46)
[2018-10-21] MEDS: ATORVASTATIN 40 MG TABLET PO SCH (21:46)
[2018-10-22] MEDS: ALBUTEROL/IPRATROPIUM 3 ML NEB RESP TX SCH ×3 (01:05→12:40)
[2018-10-22] MEDS: CEFEPIME 1,000 MG in SODIUM CHLORIDE 0.9% 100 ML IV SCH (03:37)
[2018-10-22] MEDS ORDERED: diphenhydrAMINE CAP 25 MG CAPSULE PO ONE (03:39)
[2018-10-22 05:22] LABS: Basophils % 0.2 % (0.0-0.8); Hematocrit 30.2 VOL% (42.0-52.0); Hemoglobin 9.4 GM/DL (14.0-18.0); Immature Granulocytes % 0.7 %; Immature Granulocytes Absolute 0.09 #; Lymphocytes # 0.4 10*3/uL (1.4-4.0); Lymphocytes % 2.9 % (21.2-54.2); Mean Corpuscular HGB Conc 31.1 GM/DL (32-36); Mean Corpuscular Volume 93.2 FL (87-102); Mean Platelet Volume 12.3 FL (9.6-12.0); Monocytes % 1.8 % (1.7-12.7); Neutrophils % 94.4 % (38.7-73.9); Platelet Count 137 T/CUMM (130-400); Red Blood Count 3.24 MC/CUMM (3.8-5.5); Red Cell Distribution Width 15.9 % (9.3-17.3); White Blood Count 12.6 T/CUMM (4-12)
[2018-10-22 05:42] LABS: Calcium 8.8 MG/DL (8.5-10.1); Osmolality,Calculated 289.1 MOS/KG (273-304)
[2018-10-22 05:52] LABS: Band Neutrophils 4 % (0-10); Lymphocytes 2 % (20-55); Platelet Estimate Decreased; Segmented Neutrophils 92 % (50-85); Total Cells Counted 100
[2018-10-22] MEDS: LEVOTHYROXINE 25 MCG TABLET PO SCH (06:18)
[2018-10-22] MEDS: CLOPIDOGREL 75 MG TABLET PO SCH (08:11)
[2018-10-22] MEDS: POLYETHYLENE GLYCOL POWDER 17 GM PACK PO SCH (08:11)
[2018-10-22] MEDS: LACTULOSE 20 GM/30 ML UDCUP PO PRN (08:12)
[2018-10-22] MEDS: ASPIRIN EC 81 MG TABLET PO SCH (08:12)
[2018-10-22] MEDS: PANTOPRAZOLE 40 MG TABLET PO SCH (08:12)
[2018-10-22] MEDS ORDERED: CEFEPIME 1,000 MG in SODIUM CHLORIDE 0.9% 100 ML IV SCH (09:00)
[2018-10-22] MEDS ORDERED: SODIUM PHOSPHATE ENEMA 133 ML BOTTLE RECTAL ONE (09:15)
[2018-10-22] MEDS ORDERED: BISACODYL 10 MG SUPP RECTAL ONE (09:15)
[2018-10-22] MEDS: ARFORMOTEROL 15 MCG/2 ML NEB RESP TX SCH (09:45)
[2018-10-22 14:38] VITALS: BP 137/80
[2018-10-22] MEDS: ENOXAPARIN 30 MG/0.3 ML SYRINGE SUBCUT SCH (16:21)
== END 2018-10-22 16:18 | DRG 871 ==
LOC: N.ED 09:41 → SUATTDRO 12:24 → N.EDINP 12:24 → N.ICU 13:41 → N.5E 10-08 16:52 → N.CVR 10-09 09:27 → N.ICU 10-09 17:06 → N.5E 10-12 15:05
PROVIDERS: ADMIT Family Medicine; ATTEND Internal Medicine

== ENCOUNTER 2018-10-22 19:37 | Inpatient (IN) ==
[2018-10-22 21:28] LABS: Basophils % 0.2 % (0.0-0.8); Eosinophils % 0.2 % (0.00-10.9); Hemoglobin 11.3 GM/DL (14.0-18.0); Immature Granulocytes % 0.8 %; Immature Granulocytes Absolute 0.13 #; Lymphocytes # 0.6 10*3/uL (1.4-4.0); Lymphocytes % 3.5 % (21.2-54.2); Mean Corpuscular HGB Conc 30.5 GM/DL (32-36); Mean Corpuscular Volume 96.1 FL (87-102); Mean Platelet Volume 12.2 FL (9.6-12.0); Monocytes % 3.8 % (1.7-12.7); Neutrophils % 91.5 % (38.7-73.9); Platelet Count 115 T/CUMM (130-400); Red Blood Count 3.85 MC/CUMM (3.8-5.5); Red Cell Distribution Width 16.2 % (9.3-17.3); White Blood Count 16.2 T/CUMM (4-12)
[2018-10-22 21:54] LABS: Lymphocytes 4 % (20-55); Segmented Neutrophils 92 % (50-85); Total Cells Counted 100
[2018-10-22 21:55] LABS: Hypochromasia Slight; Microcytosis Slight; Platelet Estimate Adequate
[2018-10-22 21:56] LABS: Anisocytosis Slight
[2018-10-22] MEDS ORDERED: SODIUM CHLORIDE 0.9% 2,000 ML IV STA (22:10)
[2018-10-22 22:34] LABS: Apearance,Urine Slightly Hazy (Clear); Bacteria,Urine Occasional /HPF (Few); Bilirubin,Urine Negative (Negative); Blood, Urine Moderate mg/dL (Negative); Glucose,Urine (UA) Negative (Negative); Granular Casts,Urine 4 /LPF (0-1); Hyaline Casts,Urine 6 /LPF (0-3); Ketones,Urine Negative (Negative); Mucus,Urine Occasional /LPF (Occasional); Nitrite,Urine Negative (Negative); Protein,Urine 100 MG/DL; RBC,Urine 5 /HPF (0-4); Squamous Epithelial Cell,Urine Occasional /HPF (0-10); Urine Color Yellow (Yellow); Urine Specific Gravity 1.015 (1.001-1.035); Urine Urobilinogen < 2.0 EU/DL (0.2-1.0); WBC,Urine 47 /HPF (0-6)
[2018-10-23] MEDS ORDERED: methylPREDNISolone SOD SUC 125 MG/2 ML VIAL IV STA (00:14)
[2018-10-23] MEDS ORDERED: ALBUTEROL/IPRATROPIUM 3 ML NEB RESP TX STA (00:15)
[2018-10-23 00:34] LABS: Alanine Aminotransferase 42 U/L (16-61); Albumin 2.7 G/DL (3.4-5.0); Alkaline Phosphatase 87 U/L (45-117); Aspartate Amino Transferase 48 U/L (0-37); Bilirubin,Total 0.69 MG/DL (0.2-1.0); Blood Urea Nitrogen 30 MG/DL (7-18); Calcium 9.1 MG/DL (8.5-10.1); Glucose 113 MG/DL (74-106); Osmolality,Calculated 298.4 MOS/KG (273-304); Total Protein 5.8 G/DL (6.4-8.3)
[2018-10-23] MEDS ORDERED: ACETAMINOPHEN 325 MG TABLET PO PRN (01:09)
[2018-10-23] MEDS ORDERED: ALBUTEROL 2.5 MG/3 ML NEB RESP TX PRN ×2 (01:09)
[2018-10-23] MEDS ORDERED: ONDANSETRON 4 MG/2 ML VIAL IV PRN (01:09)
[2018-10-23] MEDS: LEVOFLOXACIN INJ 750 MG in PREMIX 1 EACH IV SCH (01:46)
[2018-10-23] MEDS: AMPICILLIN/SULBACTAM 3,000 MG in SODIUM CHLORIDE 0.9% 100 ML IV SCH ×4 (02:41→20:32)
[2018-10-23] MEDS ORDERED: LACTULOSE 20 GM/30 ML UDCUP PO PRN (02:45)
[2018-10-23 02:55] LABS: Basophils # 0.1 10*3/uL (0.0-0.2); Basophils % 0.4 % (0.0-0.8); Eosinophils # 0.1 10*3/uL (0.0-0.87); Eosinophils % 0.3 % (0.00-10.9); Hematocrit 32.9 VOL% (42.0-52.0); Hemoglobin 9.8 GM/DL (14.0-18.0); Immature Granulocytes % 0.8 %; Immature Granulocytes Absolute 0.14 #; Lymphocytes # 0.8 10*3/uL (1.4-4.0); Lymphocytes % 4.5 % (21.2-54.2); Mean Corpuscular HGB Conc 29.8 GM/DL (32-36); Mean Corpuscular Volume 97.3 FL (87-102); Mean Platelet Volume 11.6 FL (9.6-12.0); Monocytes % 4.1 % (1.7-12.7); Neutrophils % 89.9 % (38.7-73.9); Platelet Count 172 T/CUMM (130-400); Red Blood Count 3.38 MC/CUMM (3.8-5.5); Red Cell Distribution Width 16.1 % (9.3-17.3); White Blood Count 16.8 T/CUMM (4-12)
[2018-10-23] MEDS: ALBUTEROL/IPRATROPIUM 3 ML NEB RESP TX SCH ×4 (02:56→20:02)
[2018-10-23 03:19] LABS: Band Neutrophils 2 % (0-10); Lymphocytes 5 % (20-55); Segmented Neutrophils 90 % (50-85); Total Cells Counted 100
[2018-10-23 03:20] LABS: Hypochromasia 1+; Platelet Estimate Normal; Reactive Lymphocytes Few
[2018-10-23 03:55] LABS: Calcium 8.6 MG/DL (8.5-10.1); Osmolality,Calculated 292.1 MOS/KG (273-304)
[2018-10-23] MEDS: LEVOTHYROXINE 25 MCG TABLET PO SCH (06:07)
[2018-10-23 07:14] LABS: Amorphous Crystals,Urine Occasional /HPF (Few); Apearance,Urine CLOUDY (Clear); Bacteria,Urine Occasional /HPF (Few); Bilirubin,Urine Negative (Negative); Blood, Urine Moderate mg/dL (Negative); Glucose,Urine (UA) Negative (Negative); Ketones,Urine 5 mg/dL (Negative); Nitrite,Urine Negative (Negative); Protein,Urine 100 MG/DL; RBC,Urine 1 /HPF (0-4); Squamous Epithelial Cell,Urine Occasional /HPF (0-10); Urine Color Amber (Yellow); Urine Specific Gravity 1.015 (1.001-1.035); Urine Urobilinogen < 2.0 EU/DL (0.2-1.0); WBC,Urine 1 /HPF (0-6)
[2018-10-23] MEDS: LISINOPRIL 2.5 MG TABLET PO SCH (08:16)
[2018-10-23] MEDS: ASPIRIN EC 81 MG TABLET PO SCH (08:16)
[2018-10-23] MEDS: CLOPIDOGREL 75 MG TABLET PO SCH (08:16)
[2018-10-23] MEDS: CARVEDILOL 6.25 MG TABLET PO SCH ×2 (08:16→17:11)
[2018-10-23] MEDS: OXYBUTYNIN XL 10 MG TABLET PO SCH (08:16)
[2018-10-23] MEDS: PANTOPRAZOLE 40 MG TABLET PO SCH (08:18)
[2018-10-23] MEDS: methylPREDNISolone SOD SUC 40 MG/1 ML VIAL IV SCH ×2 (08:24→17:11)
[2018-10-23] MEDS: ENOXAPARIN 40 MG/0.4 ML SYRINGE SUBCUT SCH (08:25)
[2018-10-23] MEDS: hydrALAZINE 10 MG TABLET PO SCH ×3 (08:25→20:32)
[2018-10-23] MEDS: ISOSORBIDE DINITRATE 10 MG TABLET PO SCH ×3 (08:27→20:32)
[2018-10-23] MEDS: MENTHOL/ZINC OXIDE OINT 71 GM JAR TOP SCH ×2 (14:05→20:33)
[2018-10-23] MEDS: ATORVASTATIN 40 MG TABLET PO SCH (20:32)
[2018-10-23] MEDS: DONEPEZIL 5 MG TABLET PO SCH (20:32)
[2018-10-23] MEDS: MIRTAZAPINE 15 MG TABLET PO SCH (20:33)
[2018-10-24] MEDS: ALBUTEROL/IPRATROPIUM 3 ML NEB RESP TX SCH ×4 (00:30→20:03)
[2018-10-24] MEDS: methylPREDNISolone SOD SUC 40 MG/1 ML VIAL IV SCH ×3 (00:57→20:51)
[2018-10-24] MEDS: AMPICILLIN/SULBACTAM 3,000 MG in SODIUM CHLORIDE 0.9% 100 ML IV SCH ×4 (01:00→20:23)
[2018-10-24 03:01] LABS: Basophils % 0.2 % (0.0-0.8); Eosinophils % 0.1 % (0.00-10.9); Hematocrit 30.7 VOL% (42.0-52.0); Hemoglobin 9.4 GM/DL (14.0-18.0); Immature Granulocytes % 0.7 %; Immature Granulocytes Absolute 0.09 #; Lymphocytes # 0.5 10*3/uL (1.4-4.0); Lymphocytes % 3.6 % (21.2-54.2); Mean Corpuscular HGB Conc 30.6 GM/DL (32-36); Mean Corpuscular Volume 95.6 FL (87-102); Mean Platelet Volume 11.8 FL (9.6-12.0); Monocytes % 3.3 % (1.7-12.7); Neutrophils % 92.1 % (38.7-73.9); Platelet Count 127 T/CUMM (130-400); Red Blood Count 3.21 MC/CUMM (3.8-5.5); Red Cell Distribution Width 15.9 % (9.3-17.3); White Blood Count 12.9 T/CUMM (4-12)
[2018-10-24 03:22] LABS: Osmolality,Calculated 297.6 MOS/KG (273-304)
[2018-10-24 03:59] LABS: Allen Test Positive
[2018-10-24 04:00] LABS: ABG Base Excess -1.9 MMOL/L (-2.5-2.5); ABG HCO3 22.7 MMOL/L (20-26); ABG Oxygen Saturation 93.5 % (95-100); ABG PCO2 45.8 MM HG (35-48); ABG PO2 68.9 MM HG (80-95); ABG TCO2 22.2 MMOL/L (23-27)
[2018-10-24 04:32] LABS: Band Neutrophils 1 % (0-10); Lymphocytes 4 % (20-55); Platelet Estimate Decreased; Segmented Neutrophils 93 % (50-85); Total Cells Counted 100
[2018-10-24] MEDS: LEVOTHYROXINE 25 MCG TABLET PO SCH (06:15)
[2018-10-24] MEDS: ENOXAPARIN 40 MG/0.4 ML SYRINGE SUBCUT SCH (09:44)
[2018-10-24] MEDS: OXYBUTYNIN XL 10 MG TABLET PO SCH (09:44)
[2018-10-24] MEDS: CARVEDILOL 6.25 MG TABLET PO SCH ×2 (09:45→18:38)
[2018-10-24] MEDS: ASPIRIN EC 81 MG TABLET PO SCH (09:45)
[2018-10-24] MEDS: ISOSORBIDE DINITRATE 10 MG TABLET PO SCH ×3 (09:45→20:22)
[2018-10-24] MEDS: PANTOPRAZOLE 40 MG TABLET PO SCH (09:45)
[2018-10-24] MEDS: hydrALAZINE 10 MG TABLET PO SCH ×3 (09:45→20:23)
[2018-10-24] MEDS: CLOPIDOGREL 75 MG TABLET PO SCH (09:45)
[2018-10-24] MEDS: LISINOPRIL 2.5 MG TABLET PO SCH (09:45)
[2018-10-24] MEDS: MENTHOL/ZINC OXIDE OINT 71 GM JAR TOP SCH ×2 (10:03→20:49)
[2018-10-24] MEDS: DEXTROSE 5% 1,000 ML IV SCH (15:00)
[2018-10-24] MEDS: SODIUM POLYSTYRENE SULFATE 15 GM/60 ML BOTTLE PO SCH ×2 (15:01→20:49)
[2018-10-24] MEDS: ATORVASTATIN 40 MG TABLET PO SCH (20:22)
[2018-10-24] MEDS: MIRTAZAPINE 15 MG TABLET PO SCH (20:22)
[2018-10-24] MEDS: DONEPEZIL 5 MG TABLET PO SCH (20:23)
[2018-10-25] MEDS: LEVOFLOXACIN INJ 750 MG in PREMIX 1 EACH IV SCH (00:43)
[2018-10-25] MEDS: ALBUTEROL/IPRATROPIUM 3 ML NEB RESP TX SCH ×4 (01:18→19:28)
[2018-10-25] MEDS: AMPICILLIN/SULBACTAM 3,000 MG in SODIUM CHLORIDE 0.9% 100 ML IV SCH ×4 (02:40→20:27)
[2018-10-25 05:41] LABS: Basophils % 0.2 % (0.0-0.8); Hematocrit 28.1 VOL% (42.0-52.0); Hemoglobin 8.7 GM/DL (14.0-18.0); Immature Granulocytes % 0.8 %; Lymphocytes # 0.4 10*3/uL (1.4-4.0); Lymphocytes % 3.7 % (21.2-54.2); Mean Platelet Volume 11.2 FL (9.6-12.0); Monocytes % 3.4 % (1.7-12.7); Neutrophils % 91.9 % (38.7-73.9); Platelet Count 118 T/CUMM (130-400); Red Blood Count 2.99 MC/CUMM (3.8-5.5); White Blood Count 11.8 T/CUMM (4-12)
[2018-10-25] MEDS: LEVOTHYROXINE 25 MCG TABLET PO SCH (05:51)
[2018-10-25 06:06] LABS: Calcium 8.6 MG/DL (8.5-10.1); Osmolality,Calculated 301.7 MOS/KG (273-304)
[2018-10-25 06:07] LABS: Hypochromasia 2+; Lymphocytes 3 % (20-55); Platelet Estimate Decreased; Segmented Neutrophils 95 % (50-85); Total Cells Counted 100
[2018-10-25] MEDS: ISOSORBIDE DINITRATE 10 MG TABLET PO SCH ×3 (09:50→20:27)
[2018-10-25] MEDS: methylPREDNISolone SOD SUC 40 MG/1 ML VIAL IV SCH ×2 (09:50→20:27)
[2018-10-25] MEDS: ASPIRIN EC 81 MG TABLET PO SCH (09:50)
[2018-10-25] MEDS: OXYBUTYNIN XL 10 MG TABLET PO SCH (09:50)
[2018-10-25] MEDS: ENOXAPARIN 40 MG/0.4 ML SYRINGE SUBCUT SCH (09:50)
[2018-10-25] MEDS: PANTOPRAZOLE 40 MG TABLET PO SCH (09:50)
[2018-10-25] MEDS: CARVEDILOL 6.25 MG TABLET PO SCH ×2 (09:51→16:48)
[2018-10-25] MEDS: hydrALAZINE 10 MG TABLET PO SCH ×3 (09:51→20:28)
[2018-10-25] MEDS: CLOPIDOGREL 75 MG TABLET PO SCH (09:51)
[2018-10-25] MEDS: MENTHOL/ZINC OXIDE OINT 71 GM JAR TOP SCH ×3 (09:56→20:28)
[2018-10-25] MEDS: DEXTROSE 5% 1,000 ML IV SCH (14:21)
[2018-10-25] MEDS: MIRTAZAPINE 15 MG TABLET PO SCH (20:28)
[2018-10-25] MEDS: ATORVASTATIN 40 MG TABLET PO SCH (20:28)
[2018-10-25] MEDS: DONEPEZIL 5 MG TABLET PO SCH (20:28)
[2018-10-26] MEDS: ALBUTEROL/IPRATROPIUM 3 ML NEB RESP TX SCH ×4 (00:14→19:45)
[2018-10-26] MEDS: AMPICILLIN/SULBACTAM 3,000 MG in SODIUM CHLORIDE 0.9% 100 ML IV SCH ×4 (02:41→20:37)
[2018-10-26] MEDS: LEVOTHYROXINE 25 MCG TABLET PO SCH (05:40)
[2018-10-26] MEDS: PANTOPRAZOLE 40 MG TABLET PO SCH (08:49)
[2018-10-26] MEDS: CARVEDILOL 6.25 MG TABLET PO SCH ×2 (08:49→16:31)
[2018-10-26] MEDS: hydrALAZINE 10 MG TABLET PO SCH ×3 (08:49→20:30)
[2018-10-26] MEDS: methylPREDNISolone SOD SUC 40 MG/1 ML VIAL IV SCH ×2 (08:49→20:31)
[2018-10-26] MEDS: CLOPIDOGREL 75 MG TABLET PO SCH (08:49)
[2018-10-26] MEDS: MENTHOL/ZINC OXIDE OINT 71 GM JAR TOP SCH ×2 (08:49→20:30)
[2018-10-26] MEDS: OXYBUTYNIN XL 10 MG TABLET PO SCH (08:49)
[2018-10-26] MEDS: ENOXAPARIN 40 MG/0.4 ML SYRINGE SUBCUT SCH (08:49)
[2018-10-26] MEDS: ISOSORBIDE DINITRATE 10 MG TABLET PO SCH ×3 (08:49→20:30)
[2018-10-26] MEDS: ASPIRIN EC 81 MG TABLET PO SCH (08:49)
[2018-10-26] MEDS: DEXTROSE 5% 1,000 ML IV SCH (14:37)
[2018-10-26] MEDS: DONEPEZIL 5 MG TABLET PO SCH (20:30)
[2018-10-26] MEDS: ATORVASTATIN 40 MG TABLET PO SCH (20:30)
[2018-10-26] MEDS: MIRTAZAPINE 15 MG TABLET PO SCH (20:30)
[2018-10-27] MEDS: ALBUTEROL/IPRATROPIUM 3 ML NEB RESP TX SCH ×4 (00:50→19:24)
[2018-10-27] MEDS: LEVOFLOXACIN INJ 750 MG in PREMIX 1 EACH IV SCH (01:18)
[2018-10-27] MEDS: AMPICILLIN/SULBACTAM 3,000 MG in SODIUM CHLORIDE 0.9% 100 ML IV SCH ×4 (02:49→20:44)
[2018-10-27] MEDS: LEVOTHYROXINE 25 MCG TABLET PO SCH (06:59)
[2018-10-27] MEDS: ISOSORBIDE DINITRATE 10 MG TABLET PO SCH ×3 (09:10→20:44)
[2018-10-27] MEDS: PANTOPRAZOLE 40 MG TABLET PO SCH (09:10)
[2018-10-27] MEDS: OXYBUTYNIN XL 10 MG TABLET PO SCH (09:10)
[2018-10-27] MEDS: DOCUSATE SODIUM 100 MG CAPSULE PO PRN (09:10)
[2018-10-27] MEDS: ASPIRIN EC 81 MG TABLET PO SCH (09:10)
[2018-10-27] MEDS: methylPREDNISolone SOD SUC 40 MG/1 ML VIAL IV SCH ×2 (09:10→20:44)
[2018-10-27] MEDS: CLOPIDOGREL 75 MG TABLET PO SCH (09:10)
[2018-10-27] MEDS: hydrALAZINE 10 MG TABLET PO SCH ×3 (09:10→20:44)
[2018-10-27] MEDS: MENTHOL/ZINC OXIDE OINT 71 GM JAR TOP SCH ×2 (09:10→20:44)
[2018-10-27] MEDS: CARVEDILOL 6.25 MG TABLET PO SCH ×2 (09:11→17:31)
[2018-10-27] MEDS: ENOXAPARIN 40 MG/0.4 ML SYRINGE SUBCUT SCH (09:11)
[2018-10-27] MEDS: DEXTROSE 5% 1,000 ML IV SCH (14:47)
[2018-10-27] MEDS: DONEPEZIL 5 MG TABLET PO SCH (20:44)
[2018-10-27] MEDS: MIRTAZAPINE 15 MG TABLET PO SCH (20:44)
[2018-10-27] MEDS: ATORVASTATIN 40 MG TABLET PO SCH (20:44)
[2018-10-28] MEDS: ALBUTEROL/IPRATROPIUM 3 ML NEB RESP TX SCH ×4 (00:16→19:00)
[2018-10-28] MEDS: AMPICILLIN/SULBACTAM 3,000 MG in SODIUM CHLORIDE 0.9% 100 ML IV SCH ×4 (01:53→20:27)
[2018-10-28] MEDS: LEVOTHYROXINE 25 MCG TABLET PO SCH (05:31)
[2018-10-28] MEDS: ENOXAPARIN 40 MG/0.4 ML SYRINGE SUBCUT SCH (08:33)
[2018-10-28] MEDS: hydrALAZINE 10 MG TABLET PO SCH ×3 (08:34→20:28)
[2018-10-28] MEDS: PANTOPRAZOLE 40 MG TABLET PO SCH (08:34)
[2018-10-28] MEDS: CARVEDILOL 6.25 MG TABLET PO SCH ×2 (08:34→17:05)
[2018-10-28] MEDS: ASPIRIN EC 81 MG TABLET PO SCH (08:34)
[2018-10-28] MEDS: OXYBUTYNIN XL 10 MG TABLET PO SCH (08:34)
[2018-10-28] MEDS: ISOSORBIDE DINITRATE 10 MG TABLET PO SCH ×3 (08:34→20:28)
[2018-10-28] MEDS: methylPREDNISolone SOD SUC 40 MG/1 ML VIAL IV SCH ×2 (08:35→20:27)
[2018-10-28] MEDS: CLOPIDOGREL 75 MG TABLET PO SCH (08:35)
[2018-10-28] MEDS: MENTHOL/ZINC OXIDE OINT 71 GM JAR TOP SCH ×2 (08:36→20:28)
[2018-10-28] MEDS: DONEPEZIL 5 MG TABLET PO SCH (20:28)
[2018-10-28] MEDS: DOCUSATE SODIUM 100 MG CAPSULE PO PRN (20:28)
[2018-10-28] MEDS: MIRTAZAPINE 15 MG TABLET PO SCH (20:28)
[2018-10-28] MEDS: ATORVASTATIN 40 MG TABLET PO SCH (20:28)
[2018-10-29] MEDS: LEVOFLOXACIN INJ 750 MG in PREMIX 1 EACH IV SCH (00:47)
[2018-10-29] MEDS: ALBUTEROL/IPRATROPIUM 3 ML NEB RESP TX SCH ×4 (00:55→19:38)
[2018-10-29] MEDS: AMPICILLIN/SULBACTAM 3,000 MG in SODIUM CHLORIDE 0.9% 100 ML IV SCH ×4 (02:57→22:49)
[2018-10-29] MEDS: LEVOTHYROXINE 25 MCG TABLET PO SCH (05:35)
[2018-10-29] MEDS: OXYBUTYNIN XL 10 MG TABLET PO SCH (08:14)
[2018-10-29] MEDS: PANTOPRAZOLE 40 MG TABLET PO SCH (08:14)
[2018-10-29] MEDS: CLOPIDOGREL 75 MG TABLET PO SCH (08:14)
[2018-10-29] MEDS: MENTHOL/ZINC OXIDE OINT 71 GM JAR TOP SCH ×2 (08:14→22:30)
[2018-10-29] MEDS: CARVEDILOL 6.25 MG TABLET PO SCH ×2 (08:14→17:01)
[2018-10-29] MEDS: hydrALAZINE 10 MG TABLET PO SCH ×3 (08:14→22:29)
[2018-10-29] MEDS: ISOSORBIDE DINITRATE 10 MG TABLET PO SCH ×3 (08:14→22:29)
[2018-10-29] MEDS: ENOXAPARIN 40 MG/0.4 ML SYRINGE SUBCUT SCH (08:14)
[2018-10-29] MEDS: ASPIRIN EC 81 MG TABLET PO SCH (08:14)
[2018-10-29] MEDS: methylPREDNISolone SOD SUC 40 MG/1 ML VIAL IV SCH ×2 (08:15→22:50)
[2018-10-29] MEDS: DOCUSATE SODIUM 100 MG CAPSULE PO PRN (22:29)
[2018-10-29] MEDS: MIRTAZAPINE 15 MG TABLET PO SCH (22:29)
[2018-10-29] MEDS: ATORVASTATIN 40 MG TABLET PO SCH (22:29)
[2018-10-29] MEDS: DONEPEZIL 5 MG TABLET PO SCH (22:29)
[2018-10-30] MEDS: ALBUTEROL/IPRATROPIUM 3 ML NEB RESP TX SCH ×4 (00:43→19:33)
[2018-10-30] MEDS: LEVOTHYROXINE 25 MCG TABLET PO SCH (06:30)
[2018-10-30] MEDS: AMPICILLIN/SULBACTAM 3,000 MG in SODIUM CHLORIDE 0.9% 100 ML IV SCH (06:32)
[2018-10-30] MEDS: methylPREDNISolone SOD SUC 40 MG/1 ML VIAL IV SCH (09:13)
[2018-10-30] MEDS: ENOXAPARIN 40 MG/0.4 ML SYRINGE SUBCUT SCH (09:14)
[2018-10-30] MEDS: ISOSORBIDE DINITRATE 10 MG TABLET PO SCH ×3 (09:15→20:32)
[2018-10-30] MEDS: OXYBUTYNIN XL 10 MG TABLET PO SCH (09:15)
[2018-10-30] MEDS: CLOPIDOGREL 75 MG TABLET PO SCH (09:15)
[2018-10-30] MEDS: CARVEDILOL 6.25 MG TABLET PO SCH ×2 (09:15→17:26)
[2018-10-30] MEDS: ASPIRIN EC 81 MG TABLET PO SCH (09:15)
[2018-10-30] MEDS: hydrALAZINE 10 MG TABLET PO SCH ×3 (09:15→20:32)
[2018-10-30] MEDS: PANTOPRAZOLE 40 MG TABLET PO SCH (09:16)
[2018-10-30] MEDS: MENTHOL/ZINC OXIDE OINT 71 GM JAR TOP SCH ×2 (09:16→20:37)
[2018-10-30] MEDS: MIRTAZAPINE 15 MG TABLET PO SCH (20:32)
[2018-10-30] MEDS: DOCUSATE SODIUM 100 MG CAPSULE PO PRN (20:32)
[2018-10-30] MEDS: ATORVASTATIN 40 MG TABLET PO SCH (20:32)
[2018-10-30] MEDS: DONEPEZIL 5 MG TABLET PO SCH (20:32)
[2018-10-31] MEDS: ALBUTEROL/IPRATROPIUM 3 ML NEB RESP TX SCH ×4 (00:47→19:32)
[2018-10-31] MEDS: LEVOTHYROXINE 25 MCG TABLET PO SCH (06:26)
[2018-10-31] MEDS ORDERED: methylPREDNISolone SOD SUC 125 MG/2 ML VIAL IV ONE (07:08)
[2018-10-31] MEDS ORDERED: BISACODYL 10 MG SUPP RECTAL ONE (09:19)
[2018-10-31] MEDS: predniSONE 20 MG TABLET PO SCH (09:23)
[2018-10-31] MEDS: OXYBUTYNIN XL 10 MG TABLET PO SCH ×2 (09:23→14:46)
[2018-10-31] MEDS: ISOSORBIDE DINITRATE 10 MG TABLET PO SCH ×3 (09:24→21:30)
[2018-10-31] MEDS: CARVEDILOL 6.25 MG TABLET PO SCH ×2 (09:24→17:43)
[2018-10-31] MEDS: DOCUSATE SODIUM 100 MG CAPSULE PO PRN (09:24)
[2018-10-31] MEDS: CLOPIDOGREL 75 MG TABLET PO SCH (09:24)
[2018-10-31] MEDS: PANTOPRAZOLE 40 MG TABLET PO SCH (09:24)
[2018-10-31] MEDS: ENOXAPARIN 40 MG/0.4 ML SYRINGE SUBCUT SCH (09:24)
[2018-10-31] MEDS: ASPIRIN EC 81 MG TABLET PO SCH (09:24)
[2018-10-31] MEDS: hydrALAZINE 10 MG TABLET PO SCH ×3 (09:24→21:30)
[2018-10-31] MEDS: MENTHOL/ZINC OXIDE OINT 71 GM JAR TOP SCH ×2 (09:25→22:07)
[2018-10-31] MEDS: OXYBUTYNIN XL 5 MG TABLET PO SCH (09:50)
[2018-10-31] MEDS: DONEPEZIL 5 MG TABLET PO SCH (21:30)
[2018-10-31] MEDS: ATORVASTATIN 40 MG TABLET PO SCH (21:30)
[2018-10-31] MEDS: MIRTAZAPINE 15 MG TABLET PO SCH (22:07)
[2018-11-01] MEDS: ALBUTEROL/IPRATROPIUM 3 ML NEB RESP TX SCH ×3 (00:40→13:11)
[2018-11-01] MEDS: LEVOTHYROXINE 25 MCG TABLET PO SCH (05:07)
[2018-11-01] MEDS: ASPIRIN EC 81 MG TABLET PO SCH (09:01)
[2018-11-01] MEDS: DOCUSATE SODIUM 100 MG CAPSULE PO PRN (09:01)
[2018-11-01] MEDS: ISOSORBIDE DINITRATE 10 MG TABLET PO SCH (09:01)
[2018-11-01] MEDS: OXYBUTYNIN XL 5 MG TABLET PO SCH (09:01)
[2018-11-01] MEDS: PANTOPRAZOLE 40 MG TABLET PO SCH (09:01)
[2018-11-01] MEDS: hydrALAZINE 10 MG TABLET PO SCH (09:01)
[2018-11-01] MEDS: ENOXAPARIN 40 MG/0.4 ML SYRINGE SUBCUT SCH (09:02)
[2018-11-01] MEDS: CARVEDILOL 6.25 MG TABLET PO SCH (09:02)
[2018-11-01] MEDS: MENTHOL/ZINC OXIDE OINT 71 GM JAR TOP SCH (09:02)
[2018-11-01] MEDS: CLOPIDOGREL 75 MG TABLET PO SCH (09:02)
[2018-11-01] MEDS: predniSONE 20 MG TABLET PO SCH (09:02)
[2018-11-01] MEDS ORDERED: SODIUM PHOSPHATE ENEMA 133 ML BOTTLE RECTAL ONE (10:37)
[2018-11-01] MEDS ORDERED: SENNA 8.6 MG TABLET PO SCH (10:38)
[2018-11-01 13:17] VITALS: BP 102/62
== END 2018-11-01 14:15 | DRG 871 ==
LOC: EDBD → EDUNIT# → N.ED 19:37 → SUATTDRO 10-23 00:20 → N.EDINP 10-23 00:20 → N.CC 10-23 01:20 → N.5E 10-24 19:31
PROVIDERS: ADMIT Family Medicine; ATTEND Internal Medicine